=== PATIENT | male | born 1960 | race Caucasian/White ===

== ENCOUNTER 2023-07-17 13:05 | Inpatient (IN) | payer MEDICARE, OTHER ==
[~2023-07-17] VITALS: Ht 180.3 cm; Wt 81.8 kg
[2023-07-17] VITALS (14 sets, daily range): BP systolic 103–146; BP diastolic 73–97; PULSE 70–95; RESP 14–25; TEMP 97.9; O2SAT 91–99
[2023-07-17] MEDS ORDERED: ondansetron/PF 4mg/2ml inj IV ONE (13:25)
[2023-07-17] MEDS ORDERED: normal saline 1000ml 1,000 ML IV ONE ×2 (13:25)
[2023-07-17] MEDS: morphine 4 MG/ML inj SYRINge IV ONE ×2 (13:25→14:28)
[2023-07-17 14:15] LABS: BASOPHILS % (AUTO) 0.2 % (0-1); EOSINOPHILS % (AUTO) 0.1 % (0-6); HEMATOCRIT 48.4 % (42.0-52.0); LYMPHOCYTES # (AUTO) 0.9 X10'3 (1.1-4.8); LYMPHOCYTES % (AUTO) 6.1 % (21-51); MEAN CORPUSCULAR HEMOGLOBIN 29.7 PG (27.0-31.0); MEAN PLATELET VOLUME 9.3 FL (7.4-10.4); MONOCYTES % (AUTO) 6.9 % (2-12); NEUTROPHILS # (AUTO) 12.8 X10'3 (1.8-7.7); NEUTROPHILS % (AUTO) 86.7 % (42-75); PLATELET COUNT 297 X10'3 (140-440); RED BLOOD COUNT 5.37 X10'6 (4.70-6.10); RED CELL DISTRIBUTION WIDTH 13.9 % (11.5-14.5); WHITE BLOOD COUNT 14.8 X10'3 (4.5-11.0)
[2023-07-17] MEDS ORDERED: metoclopramide 5 mg/ml inj IV ONE (14:20)
[2023-07-17 15:08] LABS: ALANINE AMINOTRANSFERASE 27 U/L (12-78); ALBUMIN 3.9 G/DL (3.4-5.0); ALBUMIN/GLOBULIN RATIO 0.9 (1.1-1.5); ALKALINE PHOSPHATASE 87 IU/L (46-116); ANION GAP 10 (8-16); ASPARTATE AMINO TRANSFERASE 45 U/L (10-37); BILIRUBIN,TOTAL 1.4 MG/DL (0.1-1.0); BLOOD UREA NITROGEN 15 MG/DL (7-18); BUN/CREATININE RATIO 12.1 (10.0-20.0); CALCIUM 9.8 MG/DL (8.5-10.1); CHLORIDE 102 MMOL/L (99-107); CREATININE 1.24 MG/DL (0.60-1.10); GLUCOSE 120 MG/DL (70-104); LIPASE 36 U/L (16-77); MAGNESIUM 1.9 MG/DL (1.5-2.4); POTASSIUM 4.2 MMOL/L (3.5-5.1); SODIUM 140 MMOL/L (135-145); TOTAL CARBON DIOXIDE 27.9 MMOL/L (24-32); TOTAL PROTEIN 8.2 G/DL (6.4-8.2); eCRCL 63 ML/MIN; eGFR 59 ML/MIN
[2023-07-17 15:09] LABS: APTT 21 SECONDS (22-32); PROTHROMBIN TIME 10.4 SECONDS (9.0-12.0)
[2023-07-17] MEDS ORDERED: potassium Cl 20 mEq SR tablet PO PRN ×2 (15:40)
[2023-07-17] MEDS ORDERED: magnesium 2GM in 50ml NS 50 ML IV PRN (15:40)
[2023-07-17] MEDS ORDERED: potassium Cl 40MEQ/1/2NS 520ml 520 ML IV PRN (15:40)
[2023-07-17] MEDS ORDERED: magnesium 4gm in 100ml NS 100 ML IV PRN (15:40)
[2023-07-17] MEDS ORDERED: morphine 2 MG/ML inj. syringe IV PRN ×3 (15:40→16:10)
[2023-07-17] MEDS ORDERED: acetaminophen 325mg tablet PO PRN ×2 (15:40)
[2023-07-17] MEDS ORDERED: magnesium Cl slow-release 64mg tablet PO PRN (15:40)
[2023-07-17] MEDS ORDERED: labetalol 20mg/4ml (5mg/ml) syringe IV PRN (16:10)
[2023-07-17] MEDS ORDERED: ondansetron/PF 4mg/2ml inj IV PRN (16:10)
[2023-07-17] MEDS ORDERED: fentaNYL/PF 50MCG/1 ML 2ML syringe IV PRN (16:10)
[2023-07-17] MEDS ORDERED: hydrALAZINE 20mg/ml inj. IV PRN (16:10)
[2023-07-17] MEDS ORDERED: ringers solution, lacted 1,000 ML IV SCH (16:10)
[2023-07-17] MEDS ORDERED: pantoprazole 40 MG vial IV SCH (16:35)
[2023-07-17] MEDS ORDERED: metoprolol tartrate 25mg tablet PO ONE (16:40)
[2023-07-17] MEDS: pantoprazole 40 MG vial IV SCH ×2 (16:51→20:00)
[2023-07-17] MEDS: normal saline 1000ml 1,000 ML IV SCH (17:02)
[2023-07-17] MEDS ORDERED: sevoflurane 250ml liquid IH ONE (17:25)
[2023-07-17] MEDS ORDERED: rocuronium 10mg/ml inj IV ONE ×3 (17:25→18:22)
[2023-07-17] MEDS ORDERED: LIDOcaine 1%/PF 5ML 10 MG/ML VIAL ONE (17:28)
[2023-07-17] MEDS ORDERED: propofol inj 20 ML IV ONE (17:28)
[2023-07-17] MEDS ORDERED: fentaNYL/PF 50MCG/1 ML 2ML syringe ONE ×3 (17:28→18:22)
[2023-07-17] MEDS ORDERED: ondansetron/PF 4mg/2ml inj ONE (17:29)
[2023-07-17] MEDS ORDERED: dexamethasone sod phosphate 4mg/ml inj. ONE (17:29)
[2023-07-17] MEDS ORDERED: midazolam 1 mg/ML 2ml injection ONE (17:29)
[2023-07-17] MEDS ORDERED: ceFOXitin 1000 MG inj ONE ×2 (17:39)
[2023-07-17] MEDS ORDERED: BUPIVAcaine 2.5mg/ml inj 50ml vial (contains preservative) ONE (17:51)
[2023-07-17] MEDS ORDERED: ceFAZolin 1000mg inj ONE ×2 (17:58→18:00)
[2023-07-17] MEDS ORDERED: labetalol 20mg/4ml (5mg/ml) syringe IV ONE ×2 (18:07→18:20)
[2023-07-17] MEDS ORDERED: acetaminophen 1,000mg/100ml IV 100 ML IV ONE (18:15)
[2023-07-17] MEDS ORDERED: sugammadex 200mg/2ml injection IV ONE (18:19)
[2023-07-17] MEDS ORDERED: mupirocin 2% ointment 22GM ONE (18:23)
[2023-07-17] MEDS ORDERED: hydrALAZINE 20mg/ml inj. IV ONE (18:32)
[2023-07-17] MEDS ORDERED: ceFAZolin 1000mg inj IR ONE (18:36)
[2023-07-17] MEDS ORDERED: bacitracin 15gm ointment TP ONE (18:36)
[2023-07-17] MEDS ORDERED: BUPIVAcaine 2.5mg/ml inj 50ml vial (contains preservative) IJ ONE (18:37)
[2023-07-17] MEDS ORDERED: BUPIVAcaine 0.5% inj/PF 30 ML ONE (19:12)
[2023-07-17] MEDS ORDERED: BUPIVACAINE liposomal/PF 13.3 MG/ML vial IM ONE (19:13)
[2023-07-17] MEDS: morphine 4 MG/ML inj SYRINge IV PRN ×2 (19:49→19:55)
[2023-07-17] MEDS: fentaNYL/PF 50MCG/1 ML 2ML syringe IV PRN ×2 (20:10→20:21)
[2023-07-17] MEDS: metroNIDAZOLE-Flagyl 500mg/NS 100 ML IV SCH (21:15)
[2023-07-17] MEDS: ciprofloxacin lact 400MG/200ML 200 ML IV SCH (23:40)
[2023-07-17] MEDS: heparin, porcine 5000 units/ml vial SQ SCH (23:42)
[2023-07-18 00:25] VITALS: BP 114/77; PULSE 83; O2SAT 95
[2023-07-18] MEDS: normal saline 1000ml 1,000 ML IV SCH ×2 (01:40→09:19)
[2023-07-18 02:00] VITALS: BP 109/70; PULSE 79; RESP 16; TEMP 98; O2SAT 96
[2023-07-18] MEDS ORDERED: METO-395 PO (04:59)
[2023-07-18 06:00] VITALS: BP 164/87; PULSE 78; RESP 18; TEMP 97.7; O2SAT 93
[2023-07-18 06:09] LABS: BASOPHILS % (AUTO) 0.1 % (0-1); EOSINOPHILS % (AUTO) 0 % (0-6); HEMATOCRIT 37.5 % (42.0-52.0); HEMOGLOBIN 12.3 g/dl (14.0-17.9); LYMPHOCYTES # (AUTO) 0.6 X10'3 (1.1-4.8); LYMPHOCYTES % (AUTO) 4.6 % (21-51); MEAN CORPUSCULAR HEMOGLOBIN 29.9 PG (27.0-31.0); MEAN CORPUSCULAR HGB CONC 32.8 g/dL (33.0-36.5); MEAN PLATELET VOLUME 9.1 FL (7.4-10.4); MONOCYTES # (AUTO) 1.2 X10'3 (0-0.9); MONOCYTES % (AUTO) 9.2 % (2-12); NEUTROPHILS # (AUTO) 10.9 X10'3 (1.8-7.7); NEUTROPHILS % (AUTO) 86.1 % (42-75); PLATELET COUNT 236 X10'3 (140-440); RED BLOOD COUNT 4.12 X10'6 (4.70-6.10); RED CELL DISTRIBUTION WIDTH 13.7 % (11.5-14.5); WHITE BLOOD COUNT 12.7 X10'3 (4.5-11.0)
[2023-07-18 06:49] LABS: ALANINE AMINOTRANSFERASE 21 U/L (12-78); ALBUMIN 2.7 G/DL (3.4-5.0); ALBUMIN/GLOBULIN RATIO 0.8 (1.1-1.5); ALKALINE PHOSPHATASE 62 IU/L (46-116); ANION GAP 8 (8-16); ASPARTATE AMINO TRANSFERASE 34 U/L (10-37); BILIRUBIN,TOTAL 1.1 MG/DL (0.1-1.0); BLOOD UREA NITROGEN 14 MG/DL (7-18); BUN/CREATININE RATIO 13.2 (10.0-20.0); CALCIUM 8.2 MG/DL (8.5-10.1); CHLORIDE 105 MMOL/L (99-107); CREATININE 1.06 MG/DL (0.60-1.10); GLUCOSE 111 MG/DL (70-104); POTASSIUM 3.6 MMOL/L (3.5-5.1); SODIUM 138 MMOL/L (135-145); eCRCL 74 ML/MIN; eGFR 70 ML/MIN
[2023-07-18] MEDS: metroNIDAZOLE-Flagyl 500mg/NS 100 ML IV SCH ×2 (09:11→21:49)
[2023-07-18] MEDS: heparin, porcine 5000 units/ml vial SQ SCH ×2 (09:15→20:00)
[2023-07-18] MEDS: pantoprazole 40 MG vial IV SCH ×2 (09:15→21:53)
[2023-07-18] MEDS: ciprofloxacin lact 400MG/200ML 200 ML IV SCH ×2 (10:52→21:00)
[2023-07-18 11:00] VITALS: BP 120/88; PULSE 81; RESP 14; TEMP 97.8; O2SAT 94
[2023-07-18] MEDS: vancomycin/NS 1 GM ADD-VANTAGE 250 ML IV SCH (16:05)
[2023-07-18] MEDS ORDERED: bisacodyl 10mg suppository rectal RC ONE (16:55)
[2023-07-18 18:00] VITALS: BP 147/104; PULSE 86; RESP 14; TEMP 98.6; O2SAT 96
[2023-07-18] MEDS: ibuprofen 200mg tablet PO PRN (20:56)
[2023-07-18] MEDS ORDERED: bisacodyl 10mg suppository rectal RC STA (21:23)
[2023-07-18 22:00] VITALS: BP 150/102; PULSE 90; RESP 18; TEMP 98.3; O2SAT 94
[2023-07-19] MEDS: vancomycin/NS 1 GM ADD-VANTAGE 250 ML IV SCH ×2 (02:51→13:51)
[2023-07-19] MEDS: ibuprofen 200mg tablet PO PRN ×3 (03:40→21:34)
[2023-07-19] MEDS: normal saline 1000ml 1,000 ML IV SCH ×3 (03:43→19:22)
[2023-07-19 06:14] LABS: WHITE BLOOD COUNT 13.1 X10'3 (4.5-11.0)
[2023-07-19 06:18] LABS: BASOPHILS % (AUTO) 0.2 % (0-1); EOSINOPHILS # (AUTO) 0.1 X10'3 (0-0.9); HEMATOCRIT 39.6 % (42.0-52.0); HEMOGLOBIN 13.2 g/dl (14.0-17.9); LYMPHOCYTES # (AUTO) 1.5 X10'3 (1.1-4.8); LYMPHOCYTES % (AUTO) 11.3 % (21-51); MEAN CORPUSCULAR HEMOGLOBIN 30.2 PG (27.0-31.0); MEAN CORPUSCULAR HGB CONC 33.5 g/dL (33.0-36.5); MEAN CORPUSCULAR VOLUME 90.3 FL (78-98); MEAN PLATELET VOLUME 8.7 FL (7.4-10.4); MONOCYTES # (AUTO) 1.5 X10'3 (0-0.9); MONOCYTES % (AUTO) 11.8 % (2-12); NEUTROPHILS # (AUTO) 9.9 X10'3 (1.8-7.7); NEUTROPHILS % (AUTO) 75.7 % (42-75); PLATELET COUNT 239 X10'3 (140-440); RED BLOOD COUNT 4.38 X10'6 (4.70-6.10)
[2023-07-19 06:32] VITALS: BP 128/86; PULSE 87; RESP 16; TEMP 98; O2SAT 94
[2023-07-19 06:43] LABS: ALANINE AMINOTRANSFERASE 23 U/L (12-78); ALBUMIN/GLOBULIN RATIO 0.9 (1.1-1.5); ALKALINE PHOSPHATASE 61 IU/L (46-116); ANION GAP 10 (8-16); ASPARTATE AMINO TRANSFERASE 37 U/L (10-37); BILIRUBIN,TOTAL 1.6 MG/DL (0.1-1.0); BLOOD UREA NITROGEN 13 MG/DL (7-18); CALCIUM 8.5 MG/DL (8.5-10.1); CHLORIDE 106 MMOL/L (99-107); CREATININE 1.18 MG/DL (0.60-1.10); GLUCOSE 91 MG/DL (70-104); POTASSIUM 3.6 MMOL/L (3.5-5.1); SODIUM 141 MMOL/L (135-145); TOTAL CARBON DIOXIDE 24.6 MMOL/L (24-32); TOTAL PROTEIN 6.5 G/DL (6.4-8.2); eCRCL 66 ML/MIN; eGFR 62 ML/MIN
[2023-07-19] MEDS: metoprolol succinate 25mg (24-HOUR) SR. Tablet PO SCH (07:47)
[2023-07-19] MEDS: pantoprazole 40 MG vial IV SCH (07:49)
[2023-07-19] MEDS: metroNIDAZOLE-Flagyl 500mg/NS 100 ML IV SCH ×2 (07:49→20:15)
[2023-07-19] MEDS: heparin, porcine 5000 units/ml vial SQ SCH ×2 (08:00→20:00)
[2023-07-19] MEDS: ciprofloxacin lact 400MG/200ML 200 ML IV SCH ×2 (09:49→21:34)
[2023-07-19 10:00] VITALS: BP 140/96; PULSE 83; RESP 14; TEMP 98.8; O2SAT 94
[2023-07-19] MEDS ORDERED: guaiFENesin/DM/phenylephrine syrup 120ml bottle PO PRN (12:30)
[2023-07-19] MEDS: LIDOcaine 5% patch TP SCH (13:25)
[2023-07-19] MEDS: guaiFENesin/DM 10ml UD oral syrup PO PRN ×2 (13:27→20:30)
[2023-07-19] MEDS ORDERED: mineral oil 133ml enema RC ONE ×2 (15:05→18:30)
[2023-07-19] MEDS ORDERED: traMADol 50MG tablet PO PRN (17:05)
[2023-07-19 18:00] VITALS: BP 144/92; PULSE 78; RESP 15; TEMP 98.1; O2SAT 94
[2023-07-19 20:00] VITALS: RESP 15; O2SAT 94
[2023-07-19] MEDS: pantoprazole 40mg Tablet.DR PO SCH (20:15)
[2023-07-19 22:00] VITALS: BP 145/106; PULSE 89; RESP 13; TEMP 98.7; O2SAT 96
[2023-07-20] MEDS ORDERED: VANCOMYCIN LEVEL IV ONE (01:30)
[2023-07-20 06:00] VITALS: BP 152/106; PULSE 79; RESP 16; TEMP 97.6; O2SAT 95
[2023-07-20] MEDS: LIDOcaine 5% patch TP SCH (08:00)
[2023-07-20] MEDS: heparin, porcine 5000 units/ml vial SQ SCH ×2 (08:00→19:36)
[2023-07-20 08:15] LABS: BASOPHILS # (AUTO) 0.1 X10'3 (0-0.2); BASOPHILS % (AUTO) 0.7 % (0-1); EOSINOPHILS # (AUTO) 0.3 X10'3 (0-0.9); EOSINOPHILS % (AUTO) 3.3 % (0-6); HEMATOCRIT 38.9 % (42.0-52.0); LYMPHOCYTES # (AUTO) 1.2 X10'3 (1.1-4.8); LYMPHOCYTES % (AUTO) 12.1 % (21-51); MEAN CORPUSCULAR HEMOGLOBIN 30.1 PG (27.0-31.0); MEAN CORPUSCULAR HGB CONC 33.4 g/dL (33.0-36.5); MEAN CORPUSCULAR VOLUME 90.1 FL (78-98); MEAN PLATELET VOLUME 8.6 FL (7.4-10.4); MONOCYTES # (AUTO) 1.2 X10'3 (0-0.9); MONOCYTES % (AUTO) 11.5 % (2-12); NEUTROPHILS # (AUTO) 7.3 X10'3 (1.8-7.7); NEUTROPHILS % (AUTO) 72.4 % (42-75); PLATELET COUNT 246 X10'3 (140-440); RED BLOOD COUNT 4.32 X10'6 (4.70-6.10); WHITE BLOOD COUNT 10.1 X10'3 (4.5-11.0)
[2023-07-20 08:30] VITALS: RESP 16
[2023-07-20] MEDS: metoprolol succinate 25mg (24-HOUR) SR. Tablet PO SCH (08:41)
[2023-07-20] MEDS: pantoprazole 40mg Tablet.DR PO SCH ×2 (08:41→19:30)
[2023-07-20] MEDS: ciprofloxacin lact 400MG/200ML 200 ML IV SCH (08:42)
[2023-07-20] MEDS: metroNIDAZOLE-Flagyl 500mg/NS 100 ML IV SCH (08:42)
[2023-07-20 08:57] LABS: ALANINE AMINOTRANSFERASE 25 U/L (12-78); ALBUMIN 3.1 G/DL (3.4-5.0); ALBUMIN/GLOBULIN RATIO 0.7 (1.1-1.5); ALKALINE PHOSPHATASE 60 IU/L (46-116); ANION GAP 11 (8-16); ASPARTATE AMINO TRANSFERASE 38 U/L (10-37); BILIRUBIN,TOTAL 1.5 MG/DL (0.1-1.0); BLOOD UREA NITROGEN 11 MG/DL (7-18); BUN/CREATININE RATIO 10.3 (10.0-20.0); CALCIUM 8.8 MG/DL (8.5-10.1); CHLORIDE 103 MMOL/L (99-107); CREATININE 1.07 MG/DL (0.60-1.10); GLUCOSE 87 MG/DL (70-104); POTASSIUM 3.1 MMOL/L (3.5-5.1); SODIUM 139 MMOL/L (135-145); TOTAL CARBON DIOXIDE 24.6 MMOL/L (24-32); TOTAL PROTEIN 7.3 G/DL (6.4-8.2); eCRCL 73 ML/MIN; eGFR 69 ML/MIN
[2023-07-20 10:00] VITALS: BP 158/120; PULSE 91; RESP 14; TEMP 98.5; O2SAT 99
[2023-07-20] MEDS ORDERED: lisinopril 10 MG tablet PO ONE (12:40)
[2023-07-20] MEDS: ibuprofen 200mg tablet PO PRN (13:16)
[2023-07-20] MEDS: vancomycin/NS 1 GM ADD-VANTAGE 250 ML IV SCH (14:24)
[2023-07-20] MEDS ORDERED: hydrALAZINE 20mg/ml inj. IV PRN (15:10)
[2023-07-20] MEDS ORDERED: potassium Cl 20 mEq SR tablet PO PRN (15:45)
[2023-07-20] MEDS ORDERED: magnesium 4gm in 100ml NS 100 ML IV PRN (15:45)
[2023-07-20] MEDS ORDERED: magnesium Cl slow-release 64mg tablet PO PRN (15:45)
[2023-07-20] MEDS ORDERED: magnesium 2GM in 50ml NS 50 ML IV PRN (15:45)
[2023-07-20] MEDS: acetaminophen 325mg tablet PO SCH (15:56)
[2023-07-20] MEDS: amLODIPine 5mg tablet PO SCH (15:58)
[2023-07-20] MEDS: potassium Cl 20 mEq SR tablet PO PRN (17:45)
[2023-07-20 18:00] VITALS: BP 169/107; PULSE 103; RESP 18; TEMP 97.6; O2SAT 96
[2023-07-20 20:00] VITALS: RESP 20; O2SAT 96
[2023-07-20] MEDS: K and/or MAG REPLACEMENT MC SCH (20:00)
[2023-07-20 22:00] VITALS: BP 155/92; PULSE 91; RESP 16; TEMP 98; O2SAT 94
[2023-07-21] MEDS: ondansetron/PF 4mg/2ml inj IV PRN ×3 (00:26→12:56)
[2023-07-21] MEDS: vancomycin/NS 1 GM ADD-VANTAGE 250 ML IV SCH ×2 (02:15→13:51)
[2023-07-21 06:00] VITALS: BP 166/101; PULSE 93; RESP 14; TEMP 98.2; O2SAT 96
[2023-07-21 07:30] VITALS: RESP 16
[2023-07-21 07:59] LABS: ALANINE AMINOTRANSFERASE 25 U/L (12-78); ALBUMIN 3.1 G/DL (3.4-5.0); ALBUMIN/GLOBULIN RATIO 0.8 (1.1-1.5); ALKALINE PHOSPHATASE 66 IU/L (46-116); ANION GAP 12 (8-16); ASPARTATE AMINO TRANSFERASE 39 U/L (10-37); BASOPHILS % (AUTO) 0.1 % (0-1); BILIRUBIN,TOTAL 1.2 MG/DL (0.1-1.0); BLOOD UREA NITROGEN 12 MG/DL (7-18); BUN/CREATININE RATIO 11.7 (10.0-20.0); CHLORIDE 102 MMOL/L (99-107); CREATININE 1.03 MG/DL (0.60-1.10); EOSINOPHILS # (AUTO) 0.3 X10'3 (0-0.9); EOSINOPHILS % (AUTO) 2.3 % (0-6); GLUCOSE 101 MG/DL (70-104); HEMATOCRIT 41.1 % (42.0-52.0); HEMOGLOBIN 13.6 g/dl (14.0-17.9); LYMPHOCYTES # (AUTO) 0.8 X10'3 (1.1-4.8); LYMPHOCYTES % (AUTO) 6.8 % (21-51); MEAN CORPUSCULAR HEMOGLOBIN 29.7 PG (27.0-31.0); MEAN CORPUSCULAR VOLUME 90.1 FL (78-98); MEAN PLATELET VOLUME 8.6 FL (7.4-10.4); MONOCYTES # (AUTO) 1.2 X10'3 (0-0.9); MONOCYTES % (AUTO) 10.9 % (2-12); NEUTROPHILS # (AUTO) 8.9 X10'3 (1.8-7.7); NEUTROPHILS % (AUTO) 79.9 % (42-75); PLATELET COUNT 284 X10'3 (140-440); POTASSIUM 3.3 MMOL/L (3.5-5.1); RED BLOOD COUNT 4.56 X10'6 (4.70-6.10); SODIUM 139 MMOL/L (135-145); TOTAL CARBON DIOXIDE 24.6 MMOL/L (24-32); WHITE BLOOD COUNT 11.1 X10'3 (4.5-11.0); eCRCL 76 ML/MIN; eGFR 72 ML/MIN
[2023-07-21] MEDS: acetaminophen 325mg tablet PO SCH ×3 (08:00→16:00)
[2023-07-21] MEDS: K and/or MAG REPLACEMENT MC SCH ×2 (08:00→20:00)
[2023-07-21] MEDS ORDERED: diatr meglu/diatrizoate 30ml oral sol.-(3 dose) bottle PO SCH (08:00)
[2023-07-21] MEDS: heparin, porcine 5000 units/ml vial SQ SCH ×2 (08:00→20:00)
[2023-07-21] MEDS ORDERED: diatrozoate meglu/diatrozoate sod (37% iodine) 120ML oral solution PO SCH (08:00)
[2023-07-21] MEDS: LIDOcaine 5% patch TP SCH (08:00)
[2023-07-21] MEDS ORDERED: lisinopril 10 MG tablet PO SCH (08:00)
[2023-07-21] MEDS: metoprolol succinate 25mg (24-HOUR) SR. Tablet PO SCH (08:04)
[2023-07-21] MEDS: amLODIPine 5mg tablet PO SCH (08:04)
[2023-07-21] MEDS: pantoprazole 40mg Tablet.DR PO SCH ×2 (08:05→20:00)
[2023-07-21] MEDS: diatr meglu/diatrizoate 30ml oral sol.-(3 dose) bottle PO SCH ×3 (08:13→12:48)
[2023-07-21 10:00] VITALS: BP 152/96; PULSE 83; RESP 20; TEMP 98.1; O2SAT 94
[2023-07-21] MEDS ORDERED: iohexol 350MG/ML 100ml bottle IV ONE (12:48)
[2023-07-21] MEDS ORDERED: Chloraseptic (Phenol) Spray 177ml MM PRN (17:45)
[2023-07-21 18:00] VITALS: BP 140/94; PULSE 104; RESP 18; TEMP 99.4; O2SAT 93
[2023-07-21] MEDS ORDERED: lisinopril 10 MG tablet PO ONE (18:40)
[2023-07-21] MEDS: normal saline 1000ml 1,000 ML IV SCH (19:17)
[2023-07-21 20:00] VITALS: RESP 18; O2SAT 93
[2023-07-21] MEDS: potassium Cl 40MEQ/1/2NS 520ml 520 ML IV PRN (20:04)
[2023-07-21 22:00] VITALS: BP 138/75; PULSE 86; RESP 16; TEMP 99.3; O2SAT 98
[2023-07-22] MEDS ORDERED: VANCOMYCIN LEVEL IV ONE (01:30)
[2023-07-22] MEDS: vancomycin/NS 1 GM ADD-VANTAGE 250 ML IV SCH (01:36)
[2023-07-22 01:47] LABS: BASOPHILS # (AUTO) 0.1 X10'3 (0-0.2); BASOPHILS % (AUTO) 0.5 % (0-1); EOSINOPHILS # (AUTO) 0.6 X10'3 (0-0.9); EOSINOPHILS % (AUTO) 5.3 % (0-6); HEMATOCRIT 39.1 % (42.0-52.0); LYMPHOCYTES # (AUTO) 1.4 X10'3 (1.1-4.8); MEAN CORPUSCULAR HEMOGLOBIN 30.1 PG (27.0-31.0); MEAN CORPUSCULAR HGB CONC 33.4 g/dL (33.0-36.5); MEAN CORPUSCULAR VOLUME 90.2 FL (78-98); MEAN PLATELET VOLUME 8.2 FL (7.4-10.4); MONOCYTES # (AUTO) 1.2 X10'3 (0-0.9); MONOCYTES % (AUTO) 11.2 % (2-12); NEUTROPHILS # (AUTO) 7.4 X10'3 (1.8-7.7); PLATELET COUNT 303 X10'3 (140-440); RED BLOOD COUNT 4.33 X10'6 (4.70-6.10); RED CELL DISTRIBUTION WIDTH 13.9 % (11.5-14.5); WHITE BLOOD COUNT 10.6 X10'3 (4.5-11.0)
[2023-07-22 02:01] LABS: ALANINE AMINOTRANSFERASE 33 U/L (12-78); ALBUMIN/GLOBULIN RATIO 0.8 (1.1-1.5); ALKALINE PHOSPHATASE 58 IU/L (46-116); ANION GAP 14 (8-16); ASPARTATE AMINO TRANSFERASE 37 U/L (10-37); BILIRUBIN,TOTAL 1.2 MG/DL (0.1-1.0); BLOOD UREA NITROGEN 14 MG/DL (7-18); BUN/CREATININE RATIO 12.3 (10.0-20.0); CALCIUM 8.8 MG/DL (8.5-10.1); CHLORIDE 103 MMOL/L (99-107); CREATININE 1.14 MG/DL (0.60-1.10); GLUCOSE 78 MG/DL (70-104); POTASSIUM 3.2 MMOL/L (3.5-5.1); SODIUM 140 MMOL/L (135-145); TOTAL CARBON DIOXIDE 22.7 MMOL/L (24-32); TOTAL PROTEIN 6.7 G/DL (6.4-8.2); VANCOMYCIN,TROUGH 8.5 ug/mL (10.0-20.0); eCRCL 69 ML/MIN; eGFR 64 ML/MIN
[2023-07-22] MEDS: potassium Cl 40MEQ/1/2NS 520ml 520 ML IV PRN (03:19)
[2023-07-22 06:00] VITALS: BP 117/60; PULSE 80; RESP 17; TEMP 97.7; O2SAT 96
[2023-07-22] MEDS: LIDOcaine 5% patch TP SCH (08:00)
[2023-07-22] MEDS: lisinopril 20mg tablet PO SCH (08:00)
[2023-07-22] MEDS: heparin, porcine 5000 units/ml vial SQ SCH ×2 (08:00→20:00)
[2023-07-22] MEDS: acetaminophen 325mg tablet PO SCH ×3 (08:00→16:00)
[2023-07-22] MEDS: amLODIPine 5mg tablet PO SCH (08:00)
[2023-07-22] MEDS: K and/or MAG REPLACEMENT MC SCH ×2 (08:00→20:00)
[2023-07-22] MEDS: pantoprazole 40mg Tablet.DR PO SCH ×2 (09:17→21:41)
[2023-07-22] MEDS: metoprolol succinate 25mg (24-HOUR) SR. Tablet PO SCH (09:20)
[2023-07-22 11:00] VITALS: BP 137/84; PULSE 81; RESP 18; TEMP 98.5; O2SAT 95
[2023-07-22 11:39] LABS: BASOPHILS % (AUTO) 0.4 % (0-1); EOSINOPHILS # (AUTO) 0.7 X10'3 (0-0.9); EOSINOPHILS % (AUTO) 5.7 % (0-6); HEMATOCRIT 38.6 % (42.0-52.0); HEMOGLOBIN 12.6 g/dl (14.0-17.9); LYMPHOCYTES # (AUTO) 1.2 X10'3 (1.1-4.8); LYMPHOCYTES % (AUTO) 10.9 % (21-51); MEAN CORPUSCULAR HEMOGLOBIN 29.5 PG (27.0-31.0); MEAN CORPUSCULAR HGB CONC 32.6 g/dL (33.0-36.5); MEAN CORPUSCULAR VOLUME 90.6 FL (78-98); MONOCYTES # (AUTO) 1.2 X10'3 (0-0.9); MONOCYTES % (AUTO) 10.8 % (2-12); NEUTROPHILS # (AUTO) 8.3 X10'3 (1.8-7.7); NEUTROPHILS % (AUTO) 72.2 % (42-75); PLATELET COUNT 324 X10'3 (140-440); RED BLOOD COUNT 4.26 X10'6 (4.70-6.10); RED CELL DISTRIBUTION WIDTH 13.5 % (11.5-14.5); WHITE BLOOD COUNT 11.5 X10'3 (4.5-11.0)
[2023-07-22 11:50] LABS: ALANINE AMINOTRANSFERASE 33 U/L (12-78); ALBUMIN 2.9 G/DL (3.4-5.0); ALBUMIN/GLOBULIN RATIO 0.8 (1.1-1.5); ALKALINE PHOSPHATASE 56 IU/L (46-116); ANION GAP 14 (8-16); ASPARTATE AMINO TRANSFERASE 39 U/L (10-37); BLOOD UREA NITROGEN 14 MG/DL (7-18); BUN/CREATININE RATIO 13.7 (10.0-20.0); CALCIUM 8.6 MG/DL (8.5-10.1); CHLORIDE 103 MMOL/L (99-107); CREATININE 1.02 MG/DL (0.60-1.10); GLUCOSE 73 MG/DL (70-104); POTASSIUM 3.5 MMOL/L (3.5-5.1); SODIUM 139 MMOL/L (135-145); TOTAL CARBON DIOXIDE 22.2 MMOL/L (24-32); TOTAL PROTEIN 6.5 G/DL (6.4-8.2); eCRCL 77 ML/MIN; eGFR 73 ML/MIN
[2023-07-22] MEDS: VANCOmycin 1250MG/NS 250ml Bag 250 ML IV SCH (14:00)
[2023-07-22] MEDS: normal saline 1000ml 1,000 ML IV SCH (14:50)
[2023-07-22 18:00] VITALS: BP 130/86; PULSE 77; RESP 15; TEMP 98.3; O2SAT 96
[2023-07-22 20:00] VITALS: RESP 15; O2SAT 96
[2023-07-22] MEDS: DOXYCYCLINE 100MG CAPSULE PO SCH (21:41)
[2023-07-23] MEDS: VANCOmycin 1250MG/NS 250ml Bag 250 ML IV SCH (00:01)
[2023-07-23 02:00] VITALS: BP 138/81; PULSE 83; RESP 20; TEMP 98.5; O2SAT 95
[2023-07-23 06:00] VITALS: BP 139/82; PULSE 89; RESP 16; TEMP 98.1
[2023-07-23] MEDS: pantoprazole 40mg Tablet.DR PO SCH ×2 (07:53→21:01)
[2023-07-23] MEDS: amLODIPine 5mg tablet PO SCH (07:53)
[2023-07-23] MEDS: metoprolol succinate 25mg (24-HOUR) SR. Tablet PO SCH (07:53)
[2023-07-23] MEDS: lisinopril 20mg tablet PO SCH (07:54)
[2023-07-23] MEDS: DOXYCYCLINE 100MG CAPSULE PO SCH ×2 (07:55→17:59)
[2023-07-23 08:00] VITALS: RESP 16; O2SAT 99
[2023-07-23] MEDS: heparin, porcine 5000 units/ml vial SQ SCH ×2 (08:00→20:00)
[2023-07-23] MEDS: acetaminophen 325mg tablet PO SCH ×4 (08:00→23:30)
[2023-07-23] MEDS: LIDOcaine 5% patch TP SCH (08:00)
[2023-07-23 09:42] LABS: BASOPHILS % (AUTO) 0.5 % (0-1); EOSINOPHILS # (AUTO) 0.7 X10'3 (0-0.9); EOSINOPHILS % (AUTO) 7.2 % (0-6); HEMATOCRIT 38.4 % (42.0-52.0); LYMPHOCYTES # (AUTO) 0.9 X10'3 (1.1-4.8); LYMPHOCYTES % (AUTO) 9.6 % (21-51); MEAN CORPUSCULAR HEMOGLOBIN 30.5 PG (27.0-31.0); MEAN CORPUSCULAR HGB CONC 33.9 g/dL (33.0-36.5); MEAN CORPUSCULAR VOLUME 90.1 FL (78-98); MEAN PLATELET VOLUME 7.9 FL (7.4-10.4); MONOCYTES # (AUTO) 1.1 X10'3 (0-0.9); MONOCYTES % (AUTO) 11.2 % (2-12); NEUTROPHILS % (AUTO) 71.5 % (42-75); PLATELET COUNT 306 X10'3 (140-440); RED BLOOD COUNT 4.26 X10'6 (4.70-6.10); RED CELL DISTRIBUTION WIDTH 13.5 % (11.5-14.5); WHITE BLOOD COUNT 9.8 X10'3 (4.5-11.0)
[2023-07-23 09:59] LABS: ALANINE AMINOTRANSFERASE 32 U/L (12-78); ALBUMIN 2.9 G/DL (3.4-5.0); ALBUMIN/GLOBULIN RATIO 0.8 (1.1-1.5); ALKALINE PHOSPHATASE 56 IU/L (46-116); ANION GAP 10 (8-16); ASPARTATE AMINO TRANSFERASE 32 U/L (10-37); BILIRUBIN,TOTAL 0.8 MG/DL (0.1-1.0); BLOOD UREA NITROGEN 8 MG/DL (7-18); BUN/CREATININE RATIO 8.2 (10.0-20.0); CALCIUM 8.7 MG/DL (8.5-10.1); CHLORIDE 101 MMOL/L (99-107); CREATININE 0.97 MG/DL (0.60-1.10); GLUCOSE 110 MG/DL (70-104); POTASSIUM 3.1 MMOL/L (3.5-5.1); SODIUM 137 MMOL/L (135-145); TOTAL CARBON DIOXIDE 26.3 MMOL/L (24-32); TOTAL PROTEIN 6.6 G/DL (6.4-8.2); eCRCL 81 ML/MIN; eGFR 78 ML/MIN
[2023-07-23] MEDS: K and/or MAG REPLACEMENT MC SCH ×2 (10:00→20:00)
[2023-07-23] MEDS: normal saline 1000ml 1,000 ML IV SCH ×2 (10:50→20:10)
[2023-07-23 10:58] VITALS: BP 142/76; PULSE 84; RESP 17; TEMP 98.8; O2SAT 96
[2023-07-23] MEDS: potassium Cl 20 mEq SR tablet PO PRN (11:05)
[2023-07-23] MEDS: mineral oil 133ml enema RC PRN ×2 (12:00→16:17)
[2023-07-23 22:00] VITALS: BP 141/105; PULSE 88; RESP 16; TEMP 98; O2SAT 95
[2023-07-24] MEDS ORDERED: VANCOMYCIN LEVEL IV ONE (01:30)
[2023-07-24 06:23] LABS: VANCOMYCIN,TROUGH 1.3 ug/mL (10.0-20.0)
[2023-07-24 08:00] VITALS: BP 145/96; PULSE 80; RESP 15; TEMP 98.7; O2SAT 95
[2023-07-24] MEDS: heparin, porcine 5000 units/ml vial SQ SCH (08:00)
[2023-07-24] MEDS: K and/or MAG REPLACEMENT MC SCH (08:00)
[2023-07-24] MEDS: LIDOcaine 5% patch TP SCH (08:00)
[2023-07-24] MEDS: acetaminophen 325mg tablet PO SCH (08:00)
[2023-07-24] MEDS: pantoprazole 40mg Tablet.DR PO SCH (08:13)
[2023-07-24] MEDS: DOXYCYCLINE 100MG CAPSULE PO SCH (08:13)
[2023-07-24] MEDS: metoprolol succinate 25mg (24-HOUR) SR. Tablet PO SCH (08:17)
[2023-07-24] MEDS: amLODIPine 5mg tablet PO SCH (08:18)
[2023-07-24] MEDS: lisinopril 20mg tablet PO SCH (08:20)
[2023-07-24] MEDS ORDERED: potassium Cl 20 mEq SR tablet PO PRN ×2 (08:30)
[2023-07-24] MEDS ORDERED: potassium Cl 40MEQ/1/2NS 520ml 520 ML IV PRN ×2 (08:30)
[2023-07-24 08:36] LABS: BASOPHILS % (AUTO) 0.4 % (0-1); EOSINOPHILS # (AUTO) 0.5 X10'3 (0-0.9); EOSINOPHILS % (AUTO) 5.4 % (0-6); HEMOGLOBIN 13.9 g/dl (14.0-17.9); LYMPHOCYTES # (AUTO) 1.2 X10'3 (1.1-4.8); LYMPHOCYTES % (AUTO) 13.5 % (21-51); MEAN CORPUSCULAR HEMOGLOBIN 29.9 PG (27.0-31.0); MEAN CORPUSCULAR VOLUME 90.6 FL (78-98); MEAN PLATELET VOLUME 8.9 FL (7.4-10.4); MONOCYTES # (AUTO) 1.1 X10'3 (0-0.9); MONOCYTES % (AUTO) 11.9 % (2-12); NEUTROPHILS # (AUTO) 6.3 X10'3 (1.8-7.7); NEUTROPHILS % (AUTO) 68.8 % (42-75); PLATELET COUNT 338 X10'3 (140-440); RED BLOOD COUNT 4.64 X10'6 (4.70-6.10); RED CELL DISTRIBUTION WIDTH 13.5 % (11.5-14.5); WHITE BLOOD COUNT 9.2 X10'3 (4.5-11.0)
[2023-07-24 08:41] LABS: ALANINE AMINOTRANSFERASE 35 U/L (12-78); ALBUMIN 3.2 G/DL (3.4-5.0); ALBUMIN/GLOBULIN RATIO 0.8 (1.1-1.5); ALKALINE PHOSPHATASE 67 IU/L (46-116); ANION GAP 11 (8-16); ASPARTATE AMINO TRANSFERASE 37 U/L (10-37); BILIRUBIN,TOTAL 0.8 MG/DL (0.1-1.0); BLOOD UREA NITROGEN 6 MG/DL (7-18); BUN/CREATININE RATIO 5.7 (10.0-20.0); CALCIUM 9.2 MG/DL (8.5-10.1); CHLORIDE 101 MMOL/L (99-107); CREATININE 1.05 MG/DL (0.60-1.10); GLUCOSE 92 MG/DL (70-104); POTASSIUM 3.7 MMOL/L (3.5-5.1); SODIUM 140 MMOL/L (135-145); TOTAL PROTEIN 7.3 G/DL (6.4-8.2); eCRCL 75 ML/MIN; eGFR 71 ML/MIN
[2023-07-24 10:00] VITALS: BP 125/90; PULSE 92; RESP 15; TEMP 98.5; O2SAT 94
[2023-07-24 10:02] LABS: PHOSPHORUS 3.6 MG/DL (2.3-4.5)
[2023-07-24] MEDS ORDERED: K and/or MAG REPLACEMENT MC SCH (20:00)
== END 2023-07-24 15:22 | disposition home or self-care (01) | DRG 353 ==
LOC: ER 13:05 → ED HOLD 15:41 → PACU 17:21 → ORTHO 4S 21:06
PROVIDERS: ADMIT Internal Medicine; ATTEND Internal Medicine
PROC: 0WPF4JZ Removal of Synthetic Substitute from Abdominal Wall, Percutaneous Endoscopic Approach (ICD-10-PCS; 2023-07-17)
PROC: 8E0W4CZ Robotic Assisted Procedure of Trunk Region, Percutaneous Endoscopic Approach (ICD-10-PCS; 2023-07-17)
PROC: 0WUF4JZ Supplement Abdominal Wall with Synthetic Substitute, Percutaneous Endoscopic Approach (ICD-10-PCS; principal; 2023-07-17 17:25)
PROC: B32T1ZZ Computerized Tomography (CT Scan) of Left Pulmonary Artery using Low Osmolar Contrast (ICD-10-PCS; 2023-07-21)
PROC: B3201ZZ Computerized Tomography (CT Scan) of Thoracic Aorta using Low Osmolar Contrast (ICD-10-PCS; 2023-07-21)
PROC: B32S1ZZ Computerized Tomography (CT Scan) of Right Pulmonary Artery using Low Osmolar Contrast (ICD-10-PCS; 2023-07-21)
DX: K91.30 Postprocedural intestinal obstruction, unspecified as to partial versus complete (principal); K42.1 Umbilical hernia with gangrene; R65.10 Systemic inflammatory response syndrome (SIRS) of non-infectious origin without acute organ dysfunction; K43.6 Other and unspecified ventral hernia with obstruction, without gangrene; K21.9 Gastro-esophageal reflux disease without esophagitis; N50.89 Other specified disorders of the male genital organs; M25.512 Pain in left shoulder; I10 Essential (primary) hypertension; Z88.0 Allergy status to penicillin; Z88.1 Allergy status to other antibiotic agents
CPT/HCPCS: 36415; 71275; 74176; 74177; 80053; 80202; 82948; 83605; 83690; 83735; 83880; 84100; 84132; 84145; 85025; 85610; 85651; 85730; 87040; 87081; 93005; 93970; 97116; 97161; 99285; A4615; A4618; A6258; A7000; C1776; C1781; C9113; C9290; G0378; J0131; J0360; J0690; J0694; J0744; J1100; J1644; J2250; J2270; J2405; J2704; J2765; J3010; J3370; J3480; J3490; J7030; J7120; Q9967; S0020